=== PATIENT | female | born 2000 | race Caucasian/White ===

== ENCOUNTER 2019-09-02 23:05 | Emergency (ER) | payer OTHER ==
[~2019-09-02] VITALS: Ht 162.6 cm; Wt 104.3 kg
[2019-09-03] MEDS ORDERED: PREDNISONE50 MG PO (00:20)
[2019-09-03 00:51] VITALS: BP 144/79
--- NOTE | 2019-09-03 10:21 | EKG ---
[place] [address] ELECTROCARDIOGRAM REPORT Name: AAMIR GUAJARDO Room: [facility]#: [id number] Admission: 09/02/19 Attend Phys: Discharge: 09/03/19 Date of : 89 Date of Service: 09/02/19 2328 Report #: [id number] THIS REPORT FOR: //name// [facility] ED Test Date: 2019-09-02 Test Time: 23:28:50 Pat Name: AAMIR GUAJARDO Department: Room: Gender: F Teacher'S Assistant: [facility] : 2000 Requested By: Carmel Soler Order Number: [id number] Elías MD: Dell Camara Measurements Intervals [place] Rate: 138 P: 39 [place]: 137 QRS: 19 QRSD: 91 T: -57 QT: 294 QTc: 446 Interpretive Statements Sinus tachycardia Nonspecific repol abnormality, diffuse leads Baseline wander in lead(s) V6 No previous ECG available for comparison Electronically Signed On 09-03-2019 10:20:09 CDT by Dell Camara [email or web address] <ELECTRONICALLY SIGNED> By: Dell Camara MD, [facility] [phone] [id number] Dell Camara MD, [facility] /EPI
== END 2019-09-03 00:51 | disposition home or self-care (01) ==
LOC: M.ERS 23:05
DX: T78.40XA Allergy, unspecified, initial encounter (principal); F32.9 Major depressive disorder, single episode, unspecified; F41.9 Anxiety disorder, unspecified; X58.XXXA Exposure to other specified factors, initial encounter